=== PATIENT | male | born 1980 | race Caucasian/White ===

== ENCOUNTER 2018-06-18 16:45 | Emergency (ER) | payer BC, OTHER ==
--- NOTE | 2018-06-18 17:13 | PDOC ---
Rapid Medical Evaluation Time Seen by Provider: 06/18/18 17:11 Medical Evaluation: Allergies Allergy/AdvReac Type Severity Reaction Status Date / Time No Known Allergies Allergy Verified 10/16/14 08:18 06/18/18 17:11 I have performed a brief in-person evaluation of this patient. The patient presents with a chief complaint of:Weakness and R testicular pain and pain with urination Pertinent physical exam findings:NAD I have ordered the following:Ultrasound and UA The patient will proceed to the ED for further evaluation. Discharge Disposition - Diagnosis Testicle pain - Referrals - Patient Instructions - Post Discharge Activity
[2018-06-18 17:15] VITALS: BP 149/92; PULSE 96; TEMP 99.1; BMI 37.5
[2018-06-18 19:31] LABS: URINE APPEARANCE CLOUDY; URINE BILIRUBIN NEGATIVE (<2.0 mg/dL); URINE COLOR YELLOW; URINE GLUCOSE (UA) NEGATIVE (NEGATIVE); URINE KETONE NEGATIVE (NEGATIVE); URINE LEUK ESTERASE 3+ (NEGATIVE); URINE NITRITE POSITIVE (NEGATIVE); URINE PROTEIN 2+ (NEGATIVE); URINE UROBILINOGEN 4.0 E.U/dl mg/dL (0.2-1.0)
[2018-06-18] MEDS ORDERED: ACETAMINOPHEN 325 MG TABLET (FP) PO ONE (19:32)
[2018-06-18] MEDS ORDERED: ACETAMINOPHEN 325 MG TABLET (FP) ONE (19:42)
[2018-06-18] MEDS ORDERED: KETOROLAC TROMETHAMINE 60 MG/2 ML VIAL IM ONE (19:48)
[2018-06-18] MEDS ORDERED: SODIUM CHLORIDE 1,000 ML IV ONE (19:53)
--- NOTE | 2018-06-18 19:53 | PDOC ---
*Physical Exam - Vital Signs Last Vital Signs Temp Pulse Resp BP Pulse Ox 99.1 F 96 H 18 149/92 96 06/18/18 17:14 06/18/18 17:14 06/18/18 17:14 06/18/18 17:14 06/18/18 17:14 ED Treatment Course - LABORATORY CBC & Chemistry Diagram: 06/18/18 20:00 06/18/18 20:00 - ADDITIONAL ORDERS Additional order review: Laboratory Results 06/18/18 18:45 Urine Color Yellow Urine Appearance Cloudy Urine pH 6.0 Ur Specific [place] 1.014 Urine Protein 2+ H Urine Glucose (UA) Negative Urine Ketones Negative Urine Blood 2+ H Urine Nitrite Positive Urine Bilirubin Negative Urine Urobilinogen 4.0 e.u/dl Ur Leukocyte Esterase 3+ H Medical Decision Making - Medical Decision Making 06/18/18 19:53 The patient was seen and evaluated in conjunction with DANYEL Nieves under my direct supervision, ancillary studies were reviewed. I agree with the plan as outlined by DANYEL Nieves . 37y M presents with several days of intermittent RLQ/R flank pain that radiates down to his groin. Notes the pain is intermitent but worsening. N oassociated fever, hematuria. 06/18/18 19:55 ddx - possible torsion vs kidney stone, US negative for torsion UA was nitrite positive +UTI w/ nitrite in urine - will obtian CT to r/o hydro/stone pain control, fluids for hydration *DC/Admit/Observation/Transfer Diagnosis at time of Disposition: Testicle pain - Referrals Referrals: Bishop Underwood [Primary Care Provider] - - Patient Instructions - Post Discharge Activity
[2018-06-18] MEDS ORDERED: CEFTRIAXONE 1 GM in DEXTROSE 5%-WATER - 100 ML IVPB ONE (19:54)
--- NOTE | 2018-06-18 19:56 | PDOC ---
History of Present Illness - General Chief Complaint: Pain, Acute Stated Complaint: PAIN IN LEGS AND TESTICLES,BELLY PAIN Time Seen by Provider: 06/18/18 17:11 History Source: Patient Exam Limitations: No Limitations Past History - Past Medical History Allergies/Adverse Reactions: Allergies Allergy/AdvReac Type Severity Reaction Status Date / Time No Known Allergies Allergy Verified 06/18/18 17:13 Home Medications: Ambulatory Orders Ciprofloxacin [Cipro -] 500 mg PO Q12H #14 tablet 06/18/18 Levothyroxine Sodium [Levoxyl] 112 mcg PO DAILY 06/18/18 COPD: No Thyroid Disease: Yes - Suicide/Smoking/Psychosocial Hx Smoking History: Never smoked Hx Alcohol Use: Yes Substance Use Type: Alcohol *Physical Exam - Vital Signs Last Vital Signs Temp Pulse Resp BP Pulse Ox 99.1 F 96 H 18 149/92 96 06/18/18 17:14 06/18/18 17:14 06/18/18 17:14 06/18/18 17:14 06/18/18 17:14 - Physical Exam General Appearance: No: Apparent Distress Respiratory/Chest: positive: Lungs Clear, Normal Breath Sounds. negative: Respiratory Distress Cardiovascular: positive: Regular Rhythm, Regular Rate, S1, S2. negative: Murmur Gastrointestinal/Abdominal: positive: Tender (along RLQ), Soft. negative: Guarding, Rebound, Mass Male Genitalia: positive: normal genitalia. negative: testicular tenderness, hernia Musculoskeletal: negative: CVA Tenderness Integumentary: positive: Normal Color Neurologic: positive: Alert, Normal Mood/Affect Moderate Sedation - Procedure Monitoring Vital Signs: Procedure Monitoring Vital Signs Temperature 99.1 F 06/18/18 17:14 Pulse Rate 96 H 06/18/18 17:14 Respiratory Rate 18 06/18/18 17:14 Blood Pressure 149/92 06/18/18 17:14 O2 Sat by Pulse Oximetry (%) 96 06/18/18 17:14 ED Treatment Course - LABORATORY CBC & Chemistry Diagram: 06/18/18 20:00 06/18/18 20:00 - ADDITIONAL ORDERS Additional order review: Laboratory Results 06/18/18 18:45 Urine Color Yellow Urine Appearance Cloudy Urine pH 6.0 Ur Specific [place] 1.014 Urine Protein 2+ H Urine Glucose (UA) Negative Urine Ketones Negative Urine Blood 2+ H Urine Nitrite Positive Urine Bilirubin Negative Urine Urobilinogen 4.0 e.u/dl Ur Leukocyte Esterase 3+ H - RADIOLOGY Radiology Studies Ordered: Category Date Time Status ABDOMEN & PELVIS CT W/O CONTR [CT] Stat CT Scan 06/18/18 19:48 Ordered Medical Decision Making - Medical Decision Making 37 y/o M with hx of hypothyroidism presents with R sided abdominal pain radiating intro groin x 3 days along with chills, mild dysuria and increased urinary urgency. Has been taking Motrin with some relief of pain. Denies sob, cp , n/v, hematuria. Denies prior abdominal surgeries or hx of kidney stones Testicular ultrasound negative UA positive for infection, but also concerned raised for possible kidney stones Plan: Labs, CT A/P, Toradol, IVF, reassess 06/18/18 19:56 CT A/P shows no stone but raises possibility of likely passed kidney stone Patient feeling better on reassessment Will start patient on abx, refer to urology Stable for d/c 06/18/18 23:12 *DC/Admit/Observation/Transfer Diagnosis at time of Disposition: UTI (urinary tract infection) Qualifiers: Urinary tract infection type: acute cystitis Hematuria presence: without hematuria Qualified Code(s): N30.00 - Acute cystitis without hematuria Hydronephrosis Qualifiers: Hydronephrosis type: unspecified Qualified Code(s): N13.30 - Unspecified hydronephrosis - Discharge Dispostion Disposition: HOME Condition at time of disposition: Improved Decision to Admit order: No - Prescriptions Prescriptions: Ciprofloxacin [Cipro -] 500 mg PO Q12H #14 tablet - Referrals Referrals: Bishop Underwood [Primary Care Provider] - 2 Days Nghia Manjarrez MD [Staff Physician] - Call tomorrow - Patient Instructions Printed Discharge Instructions: DI for Urinary Tract Infection (UTI), DI for Kidney Stones Additional Instructions: Thank you for choosing [facility]. It was a pleasure taking care of you. Your CT scan shows that you may have passed a kidney stone You were also noted to have urine infection Take the antibiotics as prescribed. You may take Motrin 600 mg every 4 hours by mouth as needed for mild to moderate pain. Take Motrin with food. Drink at least 2L of water daily Follow-up with urologist Return to the Emergency Department if your symptoms worsen or persist or have other concerning symptoms. - Post Discharge Activity
[2018-06-18 20:04] LABS: EPI CELLS RARE /HPF (FEW); URINE BACTERIA RARE /hpf (NONE SEEN); URINE HYALINE CAST 6 /lpf; URINE MUCUS RARE
[2018-06-18] MEDS ORDERED: CEFTRIAXONE 1 GM/50 ML BAG ONE (20:05)
[2018-06-18 20:24] LABS: BASO % 0.7 % (0-2.0); EOS % 0.4 % (0-4.5); HEMATOCRIT 39.8 % (35.4-49); HEMOGLOBIN 13.7 GM/dL (11.7-16.9); LYMPH % 19.4 % (8-40); MCH 27.7 pg (25.7-33.7); MCHC 34.5 g/dl (32.0-35.9); MEAN CELL VOLUME 80.3 fl (80-96); MEAN PLT VOLUME 7.3 fl (7.5-11.1); MONO % 10.1 % (3.8-10.2); NEUT % 69.4 % (42.8-82.8); PLATELET COUNT 275 K/MM3 (134-434); RBC 4.96 M/mm3 (4.00-5.60); RDW 13.5 % (11.9-15.9); WHITE BLOOD COUNT 13.7 K/mm3 (4.0-10.0)
[2018-06-18 20:46] LABS: ANION GAP 5 MMOL/L (8-16); BLOOD UREA NITROGEN 11 mg/dL (7-18); CALCIUM 9.1 mg/dL (8.5-10.1); CHLORIDE 102 mmol/L (98-107); CO2 29 mmol/L (21-32); CREATININE 1.1 mg/dL (0.55-1.3); GLUCOSE,RANDOM 99 mg/dL (74-106); POTASSIUM 3.7 mmol/L (3.5-5.1); SODIUM 136 mmol/L (136-145)
[2018-06-18] MEDS ORDERED: KETOROLAC TROMETHAMINE 60 MG/2 ML VIAL IVPUSH ONE (21:21)
[2018-06-18] MEDS ORDERED: KETOROLAC TROMETHAMINE 30 MG/1 ML VIAL ONE (21:43)
[2018-06-18] MEDS ORDERED: KETOROLAC TROMETHAMINE 30 MG/1 ML VIAL IVPUSH ONE (21:46)
== END 2018-06-18 23:28 | disposition home or self-care (01) ==
LOC: JER 16:45
PROC: 3E03329 Introduction of Other Anti-infective into Peripheral Vein, Percutaneous Approach (ICD-10-PCS; principal; 2018-06-18)
PROC: 3E0333Z Introduction of Anti-inflammatory into Peripheral Vein, Percutaneous Approach (ICD-10-PCS; 2018-06-18)
DX: N30.00 Acute cystitis without hematuria (principal); N13.30 Unspecified hydronephrosis; E03.9 Hypothyroidism, unspecified
CPT/HCPCS: 36415; 74176-TC; 76870-TC; 80048; 81003; 81015; 85025; 87086; 87186; 99282-25; J7030

== ENCOUNTER 2019-08-07 16:33 | Emergency (ER) | payer BC, OTHER ==
[2019-08-07 16:37] VITALS: BP 152/110; TEMP 97.1
[2019-08-07 16:38] VITALS: PULSE 126
--- NOTE | 2019-08-07 16:44 | PDOC ---
Rapid Medical Evaluation Time Seen by Provider: 08/07/19 16:40 Medical Evaluation: Allergies Allergy/AdvReac Type Severity Reaction Status Date / Time No Known Allergies Allergy Verified 06/18/18 17:13 Vital Signs Temp Pulse Resp BP Pulse Ox 97.1 F L 126 H 22 H 152/110 H 91 L 08/07/19 16:34 08/07/19 16:34 08/07/19 16:34 08/07/19 16:34 08/07/19 16:34 HPI: COVID-19 CDC guideline data points: The patient is a 38 y/o M presents with no exposure to, suspected, or confirmed COVID-19 with associated symptoms of fever, dry cough, SOB, x 4 days with no med hx. 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 Other 12 point ROS reviewed and negative. Exam: General: NAD, Well-Appearing, Awake, Alert Oriented x3. Vital signs stable. ENT: No rhinorrhea or nasal congestion. Neck: FROM, no midline tenderness. Lungs: Clear to auscultation bilaterally without wheezes, rhonchi or rales. Normal excursion. Patient is able to speak in full sentences. o2 sat 91% on RA Heart: HR: [ 126] Regular rhythm, S1-S2 present, no murmurs rubs or gallops. Abdomen: Non-distended. MSK/Extremities: No decrease ROM, No obvious deformities. No obvious cyanosis noted. Neuro: Normal Gait, Cranial Nerves II through XII Grossly Intact. Skin: No obvious rashes, bruising. Color Normal Appearing. Assessment/Plan: [Cough/fever] Patient has no med hx and denies recent travel and known COVID exposure. Pt with low o2 sat and tachycardic Patient does not meet testing criteria at this time. ASSESSMENT: Denies recent travel and known Covid exposure. Treatment: 08/07/19 17:37 cxr - for acute pathology. 02 sat 94% , hr 106m , tylenol Discharge Disposition - Diagnosis Cough - Discharge Dispostion Disposition: HOME Condition at time of disposition: Good - Referrals - Patient Instructions Printed Discharge Instructions: DI for Pneumonia -- Adult, R-[facility] COVID-19 Isolation Protocol, R-Coronavirus Instructions Additional Instructions: You were seen for your cough and possible Coronavirus (COVID-19) Take zpak as prescribed. Drink plenty of fluids Please call the [facility] testing center to make an appointment at [phone] or you can call [facility] at from 8:30 AM to 6 PM; or you can visit the [facility] website: [email or web address] for more information about testing at the [facility]. Take Tylenol 650 mg every 6 hours as needed for fever or pain. You may take Robitussin or other [id number] cough syrup. Follow the dosing instructions on the bottle. Warm tea, honey, and salt water gargles may help your symptoms. Please take precautions and self quarantine for 2 weeks and follow-up with your primary care doctor and the Department of Health. Return to the nearest emergency department for shortness of breath, difficulty breathing, chest pain, or if you have any changes in your symptoms. - Post Discharge Activity
[2019-08-07] MEDS ORDERED: ACETAMINOPHEN 500 MG TABLET (FP) PO ONE (17:46)
== END 2019-08-07 17:50 | disposition home or self-care (01) ==
LOC: JER 16:33
DX: R05 Cough (principal)
CPT/HCPCS: 71045-TC-FY; 99283-25

== ENCOUNTER 2020-12-27 14:57 | Emergency (ER) | payer BC, OTHER ==
[2020-12-27 15:13] VITALS: BP 150/86; PULSE 96; TEMP 98.9; BMI 36.9
[2020-12-27] MEDS ORDERED: SODIUM CHLORIDE 1,000 ML IV STA (15:49)
[2020-12-27 16:46] LABS: BASO % 0.3 % (0-2.0); EOS % 0.7 % (0-4.5); HEMATOCRIT 39.3 % (35.4-49); HEMOGLOBIN 13.5 GM/dL (11.7-16.9); LYMPH % 20.7 % (8-40); MCH 26.7 pg (25.7-33.7); MCHC 34.3 g/dl (32.0-35.9); MEAN CELL VOLUME 77.7 fl (80-96); MEAN PLT VOLUME 7.3 fl (7.5-11.1); MONO % 8.4 % (3.8-10.2); NEUT % 69.9 % (42.8-82.8); PLATELET COUNT 341 10^3/uL (134-434); RBC 5.05 M/mm3 (4.00-5.60); RDW 13.4 % (11.9-15.9)
[2020-12-27 16:58] LABS: INR 1.05 (0.83-1.09); PROTHROMBIN TIME (PATIENT) 12.9 SEC (9.7-13.0)
[2020-12-27 17:00] LABS: ACTIVATED PTT 30.9 SECONDS (25.2-36.5)
[2020-12-27 17:03] LABS: BLOOD UREA NITROGEN 15.6 mg/dL (7-18); CALCIUM 8.7 mg/dL (8.5-10.1)
[2020-12-27 17:07] LABS: CREATININE 1.5 mg/dL (0.55-1.3)
[2020-12-27 17:08] LABS: BILIRUBIN,TOTAL 0.5 mg/dL (0.2-1); TOT PROT 7.7 g/dl (6.4-8.2)
[2020-12-27 17:57] LABS: EPI CELLS 4 /uL (0-25.1); HYALINE CASTS 2 /uL (0-3.1); URINE APPEARANCE CLOUDY; URINE BACTERIA 725 /uL (0-1359); URINE BILIRUBIN NEGATIVE (NEGATIVE); URINE COLOR ORANGE; URINE GLUCOSE (UA) NEGATIVE (NEGATIVE); URINE KETONE NEGATIVE (NEGATIVE); URINE LEUK ESTERASE 2+ (NEGATIVE); URINE NITRITE NEGATIVE (NEGATIVE); URINE PROTEIN TRACE (NEGATIVE); URINE RBC 14303 /uL (0-23.9); URINE UROBILINOGEN 0.2 mg/dL (0.2-1.0); URINE WBC 167 /uL (0-25.8)
== END 2020-12-27 19:46 | disposition home or self-care (01) ==
LOC: JER 14:57
PROC: 3E0337Z Introduction of Electrolytic and Water Balance Substance into Peripheral Vein, Percutaneous Approach (ICD-10-PCS; principal; 2020-12-27)
DX: N30.01 Acute cystitis with hematuria (principal)
CPT/HCPCS: 36415; 74176-TC; 76775-TC; 80053; 81003; 85025; 85610; 85730; 87086; 87186; 87491; 87591; 99285-25